=== PATIENT | female | born 1940 | race Caucasian/White ===

== ENCOUNTER 2023-03-04 13:19 | Outpatient (CLI) | payer MEDICARE, BC, SELFPAY | END 2023-03-04 13:20 | disposition home or self-care (01) | LOC: NFLDREF 03-06 05:55 | PROVIDERS: Visit Provider Physician Assistant | DX: R30.0 Dysuria (principal); N39.0 Urinary tract infection, site not specified; R31.9 Hematuria, unspecified | CPT/HCPCS: 87086; 87186 ==

== ENCOUNTER 2023-08-24 08:45 | Outpatient (RCR) | payer MEDICARE, BC, SELFPAY | END 2023-12-22 23:59 | disposition home or self-care (01) | PROVIDERS: Visit Provider Family Medicine | DX: M79.644 Pain in right finger(s) (principal); M25.642 Stiffness of left hand, not elsewhere classified; M25.641 Stiffness of right hand, not elsewhere classified; Z51.89 Encounter for other specified aftercare | CPT/HCPCS: 97110; 97140; 97165; 97535; X5282 ==